=== PATIENT | female | born 2000 | race Caucasian/White ===

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

== ENCOUNTER 2023-10-02 22:03 | Inpatient (IN) | payer MEDICAID ==
[~2023-10-02] VITALS: Ht 162.6 cm; Wt 95.7 kg
[~2023-10-02 22:03] MED LIST: DIVA-112 PO; GABA-1181 PO; OLAN1TAB7 PO
[2023-10-02] MEDS ORDERED: QUEtiapine FUMARATE 100 MG TABLET PO PRN (23:30)
[2023-10-03 00:06] LABS: GLUCOMETER DEV NAME(LOC) POC.BV; POC SARS-COV2 AG, FIA NEGATIVE (NEGATIVE)
[2023-10-03 01:00] VITALS: BP 121/66; PULSE 55; RESP 18; TEMP 97.4; O2SAT 99
[2023-10-03] MEDS: ZOLPIDEM TARTRATE 10 MG TABLET PO PRN (01:09)
[2023-10-03] MEDS: LORazepam 2 MG TABLET PO PRN (01:09)
[2023-10-03 08:04] LABS: BASOPHILS % (AUTO) 0.3 % (0.0-2.0); EOSINOPHILS % (AUTO) 0.5 % (1.0-6.0); HEMATOCRIT 38.5 % (36-46); HEMOGLOBIN 12.9 g/dL (12.0-16.0); LYMPHOCYTES % (AUTO) 21.8 % (22.0-44.0); MEAN CORPUSCULAR HEMOGLOBIN 30.4 pg (26.0-34.0); MEAN CORPUSCULAR HGB CONC 33.4 G/dL (31.0-37.0); MEAN CORPUSCULAR VOLUME 91 fL (80-100); MONOCYTES # (AUTO) 0.8 K/uL (0.1-1.0); MONOCYTES % (AUTO) 9.5 % (2.0-9.0); NEUTROPHILS # (AUTO) 6.1 K/uL (1.8-7.7); NEUTROPHILS % (AUTO) 67.9 % (40.0-70.0); PLATELET COUNT (AUTO) 197 K/uL (150-450); RED BLOOD CELL COUNT(AUTO) 4.23 MIL/uL (4.00-5.20); RED CELL DISTRIBUTION WIDTH 14.2 % (11.5-14.5); WHITE BLOOD COUNT (AUTO) 8.9 K/uL (4.5-11.0)
[2023-10-03 08:05] VITALS: BP 94/65; PULSE 60; RESP 18; TEMP 97.7; O2SAT 98
[2023-10-03 08:09] LABS: HEMOGLOBIN A1C 5.6 % (3.8-5.6)
[2023-10-03 08:26] LABS: ALANINE AMINOTRANSFERASE 45 U/L (12-78); ALBUMIN 2.8 g/dL (3.4-5.0); ALKALINE PHOSPHATASE 69 U/L (46-116); ANION GAP 8 mmol/L (8-16); ASPARTATE AMINOTRANSFERASE 28 U/L (15-37); BILIRUBIN,TOTAL 0.3 mg/dL (0.1-1.0); CARBON DIOXIDE 27 mmol/L (22-29); CHLORIDE 106 mmol/L (98-107); CHOLESTEROL 165 mg/dL (131-200); CREATININE 0.75 mg/dL (0.60-1.30); FREE T4 (FREE THYROXINE) 1.15 ng/dL (0.76-1.46); GLOMERULAR FILTR. RATE CALC > 60 mL/min (>60); GLUCOSE,RANDOM 83 mg/dL (70-110); HDL CHOLESTEROL 33 mg/dL (40-60); LDL CHOL (CALC.) 102 mg/dL (0-130); POTASSIUM 4.2 mmol/L (3.5-5.1); SODIUM SERUM 141 mmol/L (136-145); THYROID STIMULATING HORMONE 3.57 uIU/mL (0.36-3.74); TOTAL PROTEIN, SERUM 7.2 g/dL (6.4-8.2); TRIGLYCERIDES 150 mg/dL (15-150); UREA NITROGEN, BLOOD 10 mg/dL (7-18)
[2023-10-03] MEDS ORDERED: LOPERAMIDE HCL 2 MG CAPSULE PO PRN (09:30)
[2023-10-03] MEDS ORDERED: CloNIDine HCL 0.1 MG TABLET PO PRN (09:30)
[2023-10-03] MEDS ORDERED: DOCUSATE SODIUM 100 MG CAPSULE PO PRN (09:30)
[2023-10-03] MEDS ORDERED: MAGNESIUM HYDROXIDE SUSPENSION 30 ML UDCUP PO PRN (09:30)
[2023-10-03] MEDS ORDERED: MAG HYDROX/ALUMINUM HYD/SIMETH ES 30 ML SUSPENSION UDCUP PO PRN (09:30)
[2023-10-03] MEDS ORDERED: PETROLATUM,WHITE 28 GM JELLY TP PRN (09:30)
[2023-10-03] MEDS: OLANZapine 10 MG RAPDIS TABLET PO SCH (09:54)
[2023-10-03] MEDS: DIVALPROEX SODIUM 500 MG ER TABLET PO SCH ×2 (09:54→20:31)
[2023-10-03] MEDS: GABAPENTIN 300 MG CAPSULE PO SCH (09:54)
[2023-10-03] MEDS: HALOPERIDOL 5 MG TABLET PO PRN (10:43)
[2023-10-03 20:21] VITALS: BP 122/66; PULSE 74; RESP 16; TEMP 97.2; O2SAT 100
[2023-10-04] MEDS: NICOTINE POLACRILEX 2 MG LOZENGE PO PRN ×2 (06:49→17:48)
[2023-10-04 08:01] VITALS: BP 121/70; PULSE 63; RESP 15; TEMP 96.9; O2SAT 96
[2023-10-04 08:35] LABS: BASOPHILS % (AUTO) 0.6 % (0.0-2.0); EOSINOPHILS % (AUTO) 0.4 % (1.0-6.0); HEMATOCRIT 41.5 % (36-46); HEMOGLOBIN 13.6 g/dL (12.0-16.0); LYMPHOCYTES % (AUTO) 22.2 % (22.0-44.0); MEAN CORPUSCULAR HEMOGLOBIN 30.2 pg (26.0-34.0); MEAN CORPUSCULAR HGB CONC 32.9 G/dL (31.0-37.0); MEAN CORPUSCULAR VOLUME 92 fL (80-100); MONOCYTES # (AUTO) 0.6 K/uL (0.1-1.0); MONOCYTES % (AUTO) 6.7 % (2.0-9.0); NEUTROPHILS # (AUTO) 6.2 K/uL (1.8-7.7); NEUTROPHILS % (AUTO) 70.1 % (40.0-70.0); PLATELET COUNT (AUTO) 206 K/uL (150-450); RED BLOOD CELL COUNT(AUTO) 4.52 MIL/uL (4.00-5.20); RED CELL DISTRIBUTION WIDTH 14.4 % (11.5-14.5); WHITE BLOOD COUNT (AUTO) 8.8 K/uL (4.5-11.0)
[2023-10-04 09:17] LABS: HEMOGLOBIN A1C 5.6 % (3.8-5.6)
[2023-10-04 09:18] LABS: ALANINE AMINOTRANSFERASE 47 U/L (12-78); ALBUMIN 3.1 g/dL (3.4-5.0); ALKALINE PHOSPHATASE 73 U/L (46-116); ANION GAP 9 mmol/L (8-16); ASPARTATE AMINOTRANSFERASE 27 U/L (15-37); BILIRUBIN,TOTAL 0.4 mg/dL (0.1-1.0); CALCIUM, TOTAL 9.1 mg/dL (8.8-10.5); CARBON DIOXIDE 27 mmol/L (22-29); CHLORIDE 103 mmol/L (98-107); CHOL/HDL RATIO 5.4 (3.9-5.7); CHOLESTEROL 177 mg/dL (131-200); CREATININE 0.88 mg/dL (0.60-1.30); FREE T4 (FREE THYROXINE) 1.35 ng/dL (0.76-1.46); GLOMERULAR FILTR. RATE CALC > 60 mL/min (>60); GLUCOSE,RANDOM 101 mg/dL (70-110); HCG,QUANTITATIVE < 1 mIU/mL (0-6); HDL CHOLESTEROL 33 mg/dL (40-60); LDL CHOL (CALC.) 120 mg/dL (0-130); SODIUM SERUM 139 mmol/L (136-145); THYROID STIMULATING HORMONE 1.31 uIU/mL (0.36-3.74); TOTAL PROTEIN, SERUM 7.9 g/dL (6.4-8.2); TRIGLYCERIDES 122 mg/dL (15-150); UREA NITROGEN, BLOOD 13 mg/dL (7-18)
[2023-10-04] MEDS: HALOPERIDOL DECANOATE 100 MG/ML VIAL IM SCH (13:33)
[2023-10-04 20:45] VITALS: BP 141/73; PULSE 71; RESP 16; TEMP 98.1; O2SAT 97
[2023-10-05 08:06] VITALS: BP 148/76; PULSE 71; RESP 15; TEMP 97.1; O2SAT 97
[2023-10-05 20:05] VITALS: BP 109/85; PULSE 60; RESP 18; TEMP 97.7; O2SAT 97
[2023-10-06 06:05] VITALS: RESP 18
[2023-10-06] MEDS: ACETAMINOPHEN 325 MG TABLET PO PRN (06:08)
[2023-10-06 07:08] VITALS: RESP 16
[2023-10-06 08:23] VITALS: BP 143/70; PULSE 70; RESP 18; TEMP 98; O2SAT 98
[2023-10-06] MEDS: GuaiFENesin/D-METHORPHAN [SUGAR-FREE] 200-20MG/10 ML SYRUP UDCUP PO PRN (18:39)
[2023-10-06] MEDS: ALBUTEROL SULFATE HFA 90 MCG/PUFF 8 GM INHALER IH PRN (19:42)
[2023-10-06 21:26] VITALS: BP 143/70; PULSE 67; RESP 18; TEMP 97.8; O2SAT 98
[2023-10-07 00:16] VITALS: BP 104/70; PULSE 93; RESP 18; TEMP 101.7; O2SAT 98
[2023-10-07] MEDS: IBUPROFEN 400 MG TABLET PO PRN (00:19)
[2023-10-07 01:19] VITALS: RESP 16
[2023-10-07 07:03] VITALS: TEMP 98.3
[2023-10-07] MEDS: AZITHROMYCIN 500 MG TABLET PO SCH (09:00)
[2023-10-07 09:48] VITALS: BP 122/70; PULSE 90; RESP 17; TEMP 97.9; O2SAT 100
[2023-10-07] MEDS: ONDANSETRON HCL 4 MG TABLET PO PRN (18:03)
[2023-10-07 22:18] VITALS: BP 103/73; PULSE 65; RESP 18; TEMP 97.2; O2SAT 96
[2023-10-08 08:06] LABS: COVID AG,FIA SOURCE NASAL SWAB
[2023-10-08 08:20] LABS: APPEARANCE,URINE CLEAR (CLEAR); BILIRUBIN,URINE NEGATIVE (NEGATIVE); COLOR,URINE LIGHT YELLOW (YELLOW); GLUCOSE, URINE (UA) NEGATIVE (NEGATIVE); KETONES,URINE NEGATIVE (NEGATIVE); LEUKOCYTE ESTERASE ,URINE TRACE (NEGATIVE); NITRATE,URINE NEGATIVE (NEGATIVE); OCCULT BLOOD,URINE SMALL (NEGATIVE); PH,URINE 5.5 (5.0-8.0); PH,URINE DRUG SCREEN 5.5 (5.0-8.0); PROTEIN,URINE NEGATIVE (NEGATIVE); SPECIFIC GRAVITIY, URINE 1.019 (1.003-1.030); UROBILINOGEN,URINE <=1.0 mg/dL (<=1.0)
[2023-10-08 08:27] LABS: ALCOHOL, URINE DRUG SCREEN NEGATIVE (NEGATIVE); AMPHET/METH SCREEN,URINE NEGATIVE (NEGATIVE); BACTERIA,URINE None Seen /HPF (None Seen); BARBITURATE SCREEN, URINE NEGATIVE (NEGATIVE); BENZODIAZEPINES SCREEN,URINE NEGATIVE (NEGATIVE); CANNABINOID SCREEN,URINE POSITIVE (NEGATIVE); COCAINE SCREEN,URINE NEGATIVE (NEGATIVE); METHADONE SCREEN, URINE NEGATIVE (NEGATIVE); OPIATE SCREEN,URINE NEGATIVE (NEGATIVE); PHENCYCLIDINE SCREEN,URINE NEGATIVE (NEGATIVE); SQUAMOUS EPITHELIAL CELL,UR Few /LPF (None Seen); WBC,URINE 0-2 /HPF (0-5)
[2023-10-08 08:44] LABS: SARS-COV2 (COVID) ANTIGEN,FIA Negative (Negative)
[2023-10-08 09:08] LABS: INFLUENZA TYPE A NEGATIVE FOR TYPE A (NEGATIVE); INFLUENZA TYPE B NEGATIVE FOR TYPE B (NEGATIVE)
[2023-10-08 09:11] VITALS: BP 112/73; PULSE 78; RESP 18; TEMP 97.1; O2SAT 98
[2023-10-08 10:03] VITALS: RESP 18
[2023-10-08] MEDS ORDERED: OLAN10TA26 PO ×2 (10:19→12:40)
[2023-10-08 11:03] VITALS: RESP 18
[2023-10-08] MEDS ORDERED: DIVA500T69 PO ×2 (12:40)
[2023-10-08] MEDS ORDERED: HALO100V36 IM (12:40)
[2023-10-08] MEDS ORDERED: GABA-1181 PO (12:40)
== END 2023-10-08 17:42 | disposition home or self-care (01) | DRG 750 ==
LOC: UNDOADMIN 10-03 00:38 → B2S 10-03 00:38 → UNDODISIN 10-03 09:15 → B2S 10-06 04:51
PROVIDERS: ADMIT Psychiatry & Neurology Child & Adolescent Psychiatry; ATTEND Psychiatry & Neurology Child & Adolescent Psychiatry
PROC: GZHZZZZ Group Psychotherapy (ICD-10-PCS; principal; 2023-10-04)
PROC: GZ52ZZZ Individual Psychotherapy, Cognitive (ICD-10-PCS; 2023-10-04)
DX: F25.1 Schizoaffective disorder, depressive type (principal); F22 Delusional disorders; E66.01 Morbid (severe) obesity due to excess calories; G47.00 Insomnia, unspecified; Z91.010 Allergy to peanuts; Z88.6 Allergy status to analgesic agent; Z91.014 Allergy to mammalian meats; Z91.018 Allergy to other foods; Z20.822 Contact with and (suspected) exposure to COVID-19; Z68.36 Body mass index [BMI] 36.0-36.9, adult
CPT/HCPCS: 80053; 80061; 80307; 81001; 83036; 84439; 84443; 84702; 84703; 85025; 87804; J1631; J3535; Q0162; Q9967

== ENCOUNTER 2023-10-10 00:56 | Inpatient (IN) | payer MEDICAID, OTHER ==
[~2023-10-10] VITALS: Ht 162.6 cm; Wt 95.0 kg
[~2023-10-10 00:56] MED LIST changes: +DIVA500T69 PO; +HALO100V36 IM; +OLAN10TA26 PO; -OLAN1TAB7 PO
[2023-10-10 01:29] LABS: EOSINOPHILS % (AUTO) 0.2 % (1.0-6.0); HEMATOCRIT 39.7 % (36-46); HEMOGLOBIN 12.9 g/dL (12.0-16.0); LYMPHOCYTES # (AUTO) 1.5 K/uL (1.0-4.8); LYMPHOCYTES % (AUTO) 27.1 % (22.0-44.0); MEAN CORPUSCULAR HGB CONC 32.6 G/dL (31.0-37.0); MEAN CORPUSCULAR VOLUME 92 fL (80-100); MONOCYTES # (AUTO) 0.5 K/uL (0.1-1.0); MONOCYTES % (AUTO) 9.2 % (2.0-9.0); NEUTROPHILS # (AUTO) 3.6 K/uL (1.8-7.7); NEUTROPHILS % (AUTO) 62.5 % (40.0-70.0); PLATELET COUNT (AUTO) 211 K/uL (150-450); RED BLOOD CELL COUNT(AUTO) 4.31 MIL/uL (4.00-5.20); RED CELL DISTRIBUTION WIDTH 14.1 % (11.5-14.5); WHITE BLOOD COUNT (AUTO) 5.7 K/uL (4.5-11.0)
[2023-10-10 01:39] LABS: COVID AG,FIA SOURCE NASAL SWAB
[2023-10-10 01:42] LABS: ANION GAP 7 mmol/L (8-16); CALCIUM, TOTAL 8.9 mg/dL (8.8-10.5); CARBON DIOXIDE 30 mmol/L (22-29); CHLORIDE 104 mmol/L (98-107); GLOMERULAR FILTR. RATE CALC > 60 mL/min (>60); GLUCOSE,RANDOM 140 mg/dL (70-110); POTASSIUM 3.6 mmol/L (3.5-5.1); SODIUM SERUM 141 mmol/L (136-145); UREA NITROGEN, BLOOD 16 mg/dL (7-18)
[2023-10-10 01:48] LABS: ALANINE AMINOTRANSFERASE 29 U/L (12-78); ALBUMIN 3.1 g/dL (3.4-5.0); ALKALINE PHOSPHATASE 56 U/L (46-116); ASPARTATE AMINOTRANSFERASE 16 U/L (15-37); BILIRUBIN,TOTAL 0.2 mg/dL (0.1-1.0); TOTAL PROTEIN, SERUM 7.4 g/dL (6.4-8.2)
[2023-10-10 01:49] LABS: ACETAMINOPHEN < 2 mcg/mL (10-30); ALCOHOL, BLOOD (SERUM) < 3 mg/dL (0-10)
[2023-10-10 02:05] LABS: SALICYLATE 0.8 mg/dL (2.8-20.0)
[2023-10-10 02:10] LABS: SARS-COV2 (COVID) ANTIGEN,FIA Negative (Negative)
[2023-10-10 02:39] LABS: APPEARANCE,URINE CLEAR (CLEAR); BILIRUBIN,URINE NEGATIVE (NEGATIVE); COLOR,URINE COLORLESS (YELLOW); GLUCOSE, URINE (UA) NEGATIVE (NEGATIVE); KETONES,URINE NEGATIVE (NEGATIVE); LEUKOCYTE ESTERASE ,URINE NEGATIVE (NEGATIVE); NITRATE,URINE NEGATIVE (NEGATIVE); OCCULT BLOOD,URINE NEGATIVE (NEGATIVE); PH,URINE 6.5 (5.0-8.0); PH,URINE DRUG SCREEN 6.5 (5.0-8.0); PROTEIN,URINE NEGATIVE (NEGATIVE); SPECIFIC GRAVITIY, URINE 1.013 (1.003-1.030); UROBILINOGEN,URINE <=1.0 mg/dL (<=1.0)
[2023-10-10 02:45] LABS: ALCOHOL, URINE DRUG SCREEN NEGATIVE (NEGATIVE); AMPHET/METH SCREEN,URINE NEGATIVE (NEGATIVE); BARBITURATE SCREEN, URINE NEGATIVE (NEGATIVE); BENZODIAZEPINES SCREEN,URINE NEGATIVE (NEGATIVE); CANNABINOID SCREEN,URINE POSITIVE (NEGATIVE); COCAINE SCREEN,URINE NEGATIVE (NEGATIVE); METHADONE SCREEN, URINE NEGATIVE (NEGATIVE); OPIATE SCREEN,URINE NEGATIVE (NEGATIVE); PHENCYCLIDINE SCREEN,URINE NEGATIVE (NEGATIVE)
[2023-10-10 14:00] VITALS: BP 127/93; PULSE 101; RESP 16; TEMP 97.3
[2023-10-10] MEDS: LORazepam 2 MG TABLET PO PRN (20:56)
[2023-10-10] MEDS: HALOPERIDOL 5 MG TABLET PO PRN (20:56)
[2023-10-10 21:07] VITALS: BP 130/82; PULSE 82; RESP 18; TEMP 98.9
[2023-10-10] MEDS: ZOLPIDEM TARTRATE 5 MG TABLET PO PRN (23:28)
[2023-10-11 08:41] VITALS: BP 126/57; PULSE 62; RESP 18; TEMP 97.8
[2023-10-11] MEDS: DIVALPROEX SODIUM 500 MG ER TABLET PO SCH ×2 (12:46→21:00)
[2023-10-11] MEDS: OLANZapine 10 MG RAPDIS TABLET PO SCH (12:46)
[2023-10-11] MEDS: GABAPENTIN 300 MG CAPSULE PO SCH (12:46)
[2023-10-11 21:50] VITALS: BP 134/70; PULSE 88; RESP 18; TEMP 97.8
[2023-10-12 09:44] VITALS: BP 96/71; PULSE 71; RESP 19; TEMP 97.5
[2023-10-12] MEDS ORDERED: DOCUSATE SODIUM 100 MG CAPSULE PO PRN (17:00)
[2023-10-12] MEDS ORDERED: GuaiFENesin/D-METHORPHAN [SUGAR-FREE] 200-20MG/10 ML SYRUP UDCUP PO PRN (17:00)
[2023-10-12] MEDS ORDERED: LOPERAMIDE HCL 2 MG CAPSULE PO PRN (17:00)
[2023-10-12] MEDS ORDERED: ALBUTEROL SULFATE HFA 90 MCG/PUFF 8 GM INHALER IH PRN (17:00)
[2023-10-12] MEDS ORDERED: CloNIDine HCL 0.1 MG TABLET PO PRN (17:00)
[2023-10-12] MEDS ORDERED: NICOTINE POLACRILEX 2 MG LOZENGE PO PRN (17:00)
[2023-10-12] MEDS ORDERED: MAGNESIUM HYDROXIDE SUSPENSION 30 ML UDCUP PO PRN (17:00)
[2023-10-12] MEDS ORDERED: PETROLATUM,WHITE 28 GM JELLY TP PRN (17:00)
[2023-10-12 17:22] VITALS: BP 112/74; PULSE 74; RESP 18; TEMP 97.3
[2023-10-12] MEDS: MAG HYDROX/ALUMINUM HYD/SIMETH ES 30 ML SUSPENSION UDCUP PO PRN (17:22)
[2023-10-12] MEDS: ACETAMINOPHEN 325 MG TABLET PO PRN (17:22)
[2023-10-12] MEDS: NICOTINE POLACRILEX 4 MG LOZENGE PO PRN (20:34)
[2023-10-12 21:50] VITALS: BP 113/70; PULSE 89; RESP 18; TEMP 97.7
[2023-10-13 08:16] VITALS: BP 137/71; PULSE 74; RESP 18; TEMP 98.1
[2023-10-13 08:30] LABS: BASOPHILS % (AUTO) 0.6 % (0.0-2.0); EOSINOPHILS % (AUTO) 0.5 % (1.0-6.0); HEMATOCRIT 41.5 % (36-46); HEMOGLOBIN 13.7 g/dL (12.0-16.0); LYMPHOCYTES # (AUTO) 1.5 K/uL (1.0-4.8); LYMPHOCYTES % (AUTO) 29.4 % (22.0-44.0); MEAN CORPUSCULAR HEMOGLOBIN 30.1 pg (26.0-34.0); MEAN CORPUSCULAR VOLUME 91 fL (80-100); MONOCYTES # (AUTO) 0.4 K/uL (0.1-1.0); MONOCYTES % (AUTO) 7.9 % (2.0-9.0); NEUTROPHILS # (AUTO) 3.1 K/uL (1.8-7.7); NEUTROPHILS % (AUTO) 61.6 % (40.0-70.0); PLATELET COUNT (AUTO) 208 K/uL (150-450); RED BLOOD CELL COUNT(AUTO) 4.55 MIL/uL (4.00-5.20); RED CELL DISTRIBUTION WIDTH 13.9 % (11.5-14.5); WHITE BLOOD COUNT (AUTO) 5.1 K/uL (4.5-11.0)
[2023-10-13 09:03] LABS: HEMOGLOBIN A1C 5.4 % (3.8-5.6)
[2023-10-13 09:15] LABS: ALANINE AMINOTRANSFERASE 39 U/L (12-78); ALBUMIN 3.3 g/dL (3.4-5.0); ALKALINE PHOSPHATASE 68 U/L (46-116); ANION GAP 8 mmol/L (8-16); ASPARTATE AMINOTRANSFERASE 37 U/L (15-37); BILIRUBIN,TOTAL 0.3 mg/dL (0.1-1.0); CARBON DIOXIDE 26 mmol/L (22-29); CHLORIDE 103 mmol/L (98-107); CHOL/HDL RATIO 4.1 (3.9-5.7); CHOLESTEROL 138 mg/dL (131-200); CREATININE 0.88 mg/dL (0.60-1.30); GLOMERULAR FILTR. RATE CALC > 60 mL/min (>60); GLUCOSE,RANDOM 114 mg/dL (70-110); HDL CHOLESTEROL 34 mg/dL (40-60); LDL CHOL (CALC.) 58 mg/dL (0-130); SODIUM SERUM 137 mmol/L (136-145); THYROID STIMULATING HORMONE 1.65 uIU/mL (0.36-3.74); TRIGLYCERIDES 228 mg/dL (15-150); UREA NITROGEN, BLOOD 12 mg/dL (7-18)
[2023-10-13 17:58] VITALS: BP 128/68; PULSE 72; RESP 17; TEMP 97.8
[2023-10-13 18:59] VITALS: RESP 18
[2023-10-13 21:50] VITALS: BP 146/68; PULSE 72; RESP 18; TEMP 98
[2023-10-13] MEDS: DiphenhydrAMINE HCL 25 MG CAPSULE PO ONE (22:10)
[2023-10-14 10:17] VITALS: BP 112/56; PULSE 58; RESP 18; TEMP 98
[2023-10-14 22:39] VITALS: BP 110/71; PULSE 66; RESP 18; TEMP 96.4
[2023-10-15 08:05] VITALS: BP 115/79; PULSE 93; RESP 18; TEMP 98
[2023-10-15 20:07] VITALS: BP 116/88; PULSE 76; RESP 18; TEMP 97.9
[2023-10-16 11:03] VITALS: BP 127/74; PULSE 82; RESP 18; TEMP 97
[2023-10-16 14:49] VITALS: BP 118/75; PULSE 78; RESP 18; TEMP 97.8
[2023-10-16 15:48] VITALS: RESP 18
[2023-10-16 20:40] VITALS: BP 119/79; PULSE 78; RESP 18; TEMP 97.4
[2023-10-17] VITALS (13 sets, daily range): BP systolic 88–134; BP diastolic 34–88; PULSE 48–84; RESP 16–18; TEMP 97.2–98.9; O2SAT 99
[2023-10-17] MEDS: ONDANSETRON HCL 4 MG TABLET PO PRN (08:30)
[2023-10-17] MEDS: IBUPROFEN 400 MG TABLET PO PRN (09:35)
[2023-10-18 08:40] VITALS: BP 130/85; PULSE 79; RESP 18; TEMP 97.7
[2023-10-18] MEDS ORDERED: ARIP400S3 IM (11:48)
[2023-10-18] MEDS ORDERED: DIVA-153 PO ×2 (11:48)
[2023-10-26] MEDS ORDERED: ARIPiprazole ER SUSPENSION 400 MG PRE-FILLED DUAL CHAMBER SYRINGE IM SCH (09:00)
== END 2023-10-18 15:24 | disposition home or self-care (01) | DRG 750 ==
LOC: EMS 00:57 → 3EI 13:10
PROVIDERS: ADMIT Psychiatry & Neurology Child & Adolescent Psychiatry; ATTEND Psychiatry & Neurology Child & Adolescent Psychiatry
PROC: GZHZZZZ Group Psychotherapy (ICD-10-PCS; principal; 2023-10-11)
PROC: GZ52ZZZ Individual Psychotherapy, Cognitive (ICD-10-PCS; 2023-10-11)
DX: F25.1 Schizoaffective disorder, depressive type (principal); R45.851 Suicidal ideations; R56.9 Unspecified convulsions; E66.01 Morbid (severe) obesity due to excess calories; Y90.9 Presence of alcohol in blood, level not specified; T43.592A Poisoning by other antipsychotics and neuroleptics, intentional self-harm, initial encounter; Z20.822 Contact with and (suspected) exposure to COVID-19; K31.84 Gastroparesis; F10.10 Alcohol abuse, uncomplicated; F12.90 Cannabis use, unspecified, uncomplicated; T43.96XA Underdosing of unspecified psychotropic drug, initial encounter; Z91.010 Allergy to peanuts; Z88.8 Allergy status to other drugs, medicaments and biological substances; Z88.5 Allergy status to narcotic agent; Z91.014 Allergy to mammalian meats; Y92.89 Other specified places as the place of occurrence of the external cause; Z79.899 Other long term (current) drug therapy; Z68.35 Body mass index [BMI] 35.0-35.9, adult
CPT/HCPCS: 72040; 80053; 80061; 80307; 81003; 83036; 84443; 85025; 87081; 93005; 99291; G0480; G0481; Q0162; Q9967

== ENCOUNTER 2023-10-19 18:57 | Inpatient (IN) | payer MEDICAID, OTHER ==
[~2023-10-19] VITALS: Ht 162.6 cm; Wt 103.4 kg
[~2023-10-19 18:57] MED LIST changes: +ARIP400S3 IM; +DIVA-153 PO; -HALO100V36 IM
[2023-10-19 20:05] LABS: COVID AG,FIA SOURCE NASAL SWAB
[2023-10-19 20:12] LABS: BASOPHILS % (AUTO) 0.4 % (0.0-2.0); EOSINOPHILS % (AUTO) 0.1 % (1.0-6.0); HEMATOCRIT 40.7 % (36-46); HEMOGLOBIN 13.1 g/dL (12.0-16.0); LYMPHOCYTES # (AUTO) 1.3 K/uL (1.0-4.8); LYMPHOCYTES % (AUTO) 16.3 % (22.0-44.0); MEAN CORPUSCULAR HEMOGLOBIN 29.6 pg (26.0-34.0); MEAN CORPUSCULAR HGB CONC 32.2 G/dL (31.0-37.0); MEAN CORPUSCULAR VOLUME 92 fL (80-100); MONOCYTES # (AUTO) 0.7 K/uL (0.1-1.0); MONOCYTES % (AUTO) 8.5 % (2.0-9.0); NEUTROPHILS # (AUTO) 5.9 K/uL (1.8-7.7); NEUTROPHILS % (AUTO) 74.7 % (40.0-70.0); PLATELET COUNT (AUTO) 194 K/uL (150-450); RED BLOOD CELL COUNT(AUTO) 4.43 MIL/uL (4.00-5.20); RED CELL DISTRIBUTION WIDTH 13.9 % (11.5-14.5); WHITE BLOOD COUNT (AUTO) 7.9 K/uL (4.5-11.0)
[2023-10-19 20:18] LABS: ANION GAP 7 mmol/L (8-16); CALCIUM, TOTAL 9.4 mg/dL (8.8-10.5); CARBON DIOXIDE 30 mmol/L (22-29); CHLORIDE 104 mmol/L (98-107); CREATININE 0.84 mg/dL (0.60-1.30); GLOMERULAR FILTR. RATE CALC > 60 mL/min (>60); GLUCOSE,RANDOM 106 mg/dL (70-110); POTASSIUM 3.9 mmol/L (3.5-5.1); SODIUM SERUM 141 mmol/L (136-145); UREA NITROGEN, BLOOD 14 mg/dL (7-18)
[2023-10-19 20:21] LABS: ALCOHOL, URINE DRUG SCREEN NEGATIVE (NEGATIVE); AMPHET/METH SCREEN,URINE NEGATIVE (NEGATIVE); BARBITURATE SCREEN, URINE NEGATIVE (NEGATIVE); BENZODIAZEPINES SCREEN,URINE NEGATIVE (NEGATIVE); CANNABINOID SCREEN,URINE POSITIVE (NEGATIVE); COCAINE SCREEN,URINE NEGATIVE (NEGATIVE); METHADONE SCREEN, URINE NEGATIVE (NEGATIVE); OPIATE SCREEN,URINE NEGATIVE (NEGATIVE); PHENCYCLIDINE SCREEN,URINE NEGATIVE (NEGATIVE)
[2023-10-19 20:21] LABS: ALANINE AMINOTRANSFERASE 29 U/L (12-78); ALBUMIN 3.5 g/dL (3.4-5.0); ALKALINE PHOSPHATASE 67 U/L (46-116); ASPARTATE AMINOTRANSFERASE 17 U/L (15-37); BILIRUBIN,TOTAL 0.3 mg/dL (0.1-1.0); TOTAL PROTEIN, SERUM 7.7 g/dL (6.4-8.2)
[2023-10-19 20:23] LABS: SARS-COV2 (COVID) ANTIGEN,FIA Negative (Negative)
[2023-10-19 20:24] LABS: ALCOHOL, BLOOD (SERUM) < 3 mg/dL (0-10)
[2023-10-19] MEDS: OLANZapine 5 MG TABLET PO ONE (21:41)
[2023-10-20] MEDS ORDERED: LOPERAMIDE HCL 2 MG CAPSULE PO PRN (07:30)
[2023-10-20] MEDS ORDERED: CloNIDine HCL 0.1 MG TABLET PO PRN (07:30)
[2023-10-20] MEDS ORDERED: NICOTINE 14 MG/24 HOUR PATCH TD PRN (07:30)
[2023-10-20] MEDS ORDERED: ACETAMINOPHEN 325 MG TABLET PO PRN (07:30)
[2023-10-20] MEDS ORDERED: MAGNESIUM HYDROXIDE SUSPENSION 30 ML UDCUP PO PRN (07:30)
[2023-10-20] MEDS ORDERED: ALBUTEROL SULFATE HFA 90 MCG/PUFF 8 GM INHALER IH PRN (07:30)
[2023-10-20] MEDS ORDERED: PETROLATUM,WHITE 28 GM JELLY TP PRN (07:30)
[2023-10-20] MEDS ORDERED: MAG HYDROX/ALUMINUM HYD/SIMETH ES 30 ML SUSPENSION UDCUP PO PRN (07:30)
[2023-10-20] MEDS ORDERED: DOCUSATE SODIUM 100 MG CAPSULE PO PRN (07:30)
[2023-10-20] MEDS ORDERED: GuaiFENesin/D-METHORPHAN [SUGAR-FREE] 200-20MG/10 ML SYRUP UDCUP PO PRN (07:30)
[2023-10-20 09:50] VITALS: BP 127/69; PULSE 74; RESP 16; TEMP 98; O2SAT 97
[2023-10-20] MEDS: LORazepam 2 MG TABLET PO PRN (10:25)
[2023-10-20] MEDS: HALOPERIDOL 5 MG TABLET PO PRN (10:25)
[2023-10-20] MEDS: GABAPENTIN 300 MG CAPSULE PO SCH (13:19)
[2023-10-20] MEDS: DIVALPROEX SODIUM 500 MG DR TABLET PO SCH (13:19)
[2023-10-20 18:32] VITALS: BP 115/63
[2023-10-20] MEDS: NICOTINE POLACRILEX 2 MG LOZENGE PO PRN (18:50)
[2023-10-20] MEDS: ZOLPIDEM TARTRATE 10 MG TABLET PO PRN (20:22)
[2023-10-20] MEDS: OLANZapine 10 MG TABLET PO SCH (20:23)
[2023-10-20 20:35] VITALS: BP 115/63; PULSE 56; RESP 16; TEMP 98.4; O2SAT 97
[2023-10-20] MEDS: IBUPROFEN 400 MG TABLET PO PRN (23:05)
[2023-10-21 00:05] VITALS: RESP 16
[2023-10-21 08:17] VITALS: BP 122/76; PULSE 61; RESP 18; TEMP 97.4; O2SAT 99
[2023-10-21] MEDS: OLANZapine 5 MG RAPDIS TABLET PO ONE (10:47)
[2023-10-21] MEDS: BACITRACIN 28 GM OINTMENT TP SCH (17:24)
[2023-10-21] MEDS: ONDANSETRON HCL 4 MG TABLET PO PRN (18:40)
[2023-10-21 20:27] VITALS: BP 119/76; PULSE 71; RESP 18; TEMP 98; O2SAT 97
[2023-10-22 08:38] LABS: HEMOGLOBIN A1C 5.3 % (3.8-5.6)
[2023-10-22 08:53] LABS: CHOL/HDL RATIO 4.5 (3.9-5.7); THYROID STIMULATING HORMONE 1.71 uIU/mL (0.36-3.74)
[2023-10-22 09:18] VITALS: BP 116/64; PULSE 86; RESP 18; TEMP 97.2; O2SAT 97
[2023-10-22] MEDS: ETHYL ALCOHOL 62% ANTISEPTIC NASAL SANITIZER 0.6 ML AMPUL NASAL SCH (21:00)
[2023-10-23 02:02] VITALS: BP 126/75; PULSE 76; RESP 18; TEMP 97.8; O2SAT 98
[2023-10-23 08:18] VITALS: BP 100/68; PULSE 75; RESP 18; TEMP 97.3; O2SAT 98
[2023-10-23 08:53] LABS: APPEARANCE,URINE CLEAR (CLEAR); BILIRUBIN,URINE NEGATIVE (NEGATIVE); COLOR,URINE YELLOW (YELLOW); GLUCOSE, URINE (UA) NEGATIVE (NEGATIVE); KETONES,URINE NEGATIVE (NEGATIVE); LEUKOCYTE ESTERASE ,URINE NEGATIVE (NEGATIVE); NITRATE,URINE NEGATIVE (NEGATIVE); OCCULT BLOOD,URINE NEGATIVE (NEGATIVE); PROTEIN,URINE NEGATIVE (NEGATIVE); SPECIFIC GRAVITIY, URINE 1.022 (1.003-1.030); UROBILINOGEN,URINE <=1.0 mg/dL (<=1.0)
[2023-10-23 09:15] LABS: ALCOHOL, URINE DRUG SCREEN NEGATIVE (NEGATIVE); AMPHET/METH SCREEN,URINE NEGATIVE (NEGATIVE); BARBITURATE SCREEN, URINE NEGATIVE (NEGATIVE); BENZODIAZEPINES SCREEN,URINE NEGATIVE (NEGATIVE); CANNABINOID SCREEN,URINE POSITIVE (NEGATIVE); COCAINE SCREEN,URINE NEGATIVE (NEGATIVE); METHADONE SCREEN, URINE NEGATIVE (NEGATIVE); OPIATE SCREEN,URINE NEGATIVE (NEGATIVE); PHENCYCLIDINE SCREEN,URINE NEGATIVE (NEGATIVE)
[2023-10-23 09:44] VITALS: RESP 18
[2023-10-23 10:44] VITALS: RESP 18
[2023-10-23 16:06] LABS: HEPATITIS C AB (EIA) Non Reactive (Non Reactive)
[2023-10-23 20:38] VITALS: BP 127/77; PULSE 77; RESP 16; TEMP 97.5; O2SAT 100
[2023-10-24 08:55] VITALS: BP 100/60; PULSE 53; RESP 17; TEMP 97.7; O2SAT 98
[2023-10-24 20:19] VITALS: BP 121/74; PULSE 76; RESP 16; TEMP 98; O2SAT 98
[2023-10-25 08:44] VITALS: BP 102/60; PULSE 68; RESP 18; TEMP 97.8; O2SAT 97
[2023-10-25] MEDS ORDERED: OLAN10TA74 PO (12:06)
[2023-10-25] MEDS ORDERED: DIVA-112 PO (12:06)
[2023-10-26] MEDS ORDERED: ARIPiprazole ER SUSPENSION 400 MG PRE-FILLED DUAL CHAMBER SYRINGE IM SCH (09:00)
== END 2023-10-25 16:09 | disposition home or self-care (01) | DRG 750 ==
LOC: EMS 19:01 → B2S 10-20 03:02
PROVIDERS: ADMIT Psychiatry & Neurology Child & Adolescent Psychiatry; ATTEND Psychiatry & Neurology Child & Adolescent Psychiatry
DX: F25.1 Schizoaffective disorder, depressive type (principal); R45.851 Suicidal ideations; G40.909 Epilepsy, unspecified, not intractable, without status epilepticus; F32.9 Major depressive disorder, single episode, unspecified; Z20.822 Contact with and (suspected) exposure to COVID-19; F12.10 Cannabis abuse, uncomplicated; Z79.899 Other long term (current) drug therapy; Z91.010 Allergy to peanuts; Z91.148 Patient's other noncompliance with medication regimen for other reason
CPT/HCPCS: 80053; 80061; 80164; 80307; 81003; 83036; 84443; 85025; 86803; 87081; 87340; G0480; J0401; Q0162; Q9967

== ENCOUNTER 2023-10-28 03:30 | Inpatient (IN) | payer MEDICAID ==
[~2023-10-28] VITALS: Ht 162.6 cm; Wt 96.6 kg
[~2023-10-28 03:30] MED LIST changes: -DIVA-153 PO; -DIVA500T69 PO; -OLAN10TA26 PO; +OLAN10TA74 PO
[2023-10-29] MEDS: ZOLPIDEM TARTRATE 10 MG TABLET PO PRN (00:22)
[2023-10-29 02:14] VITALS: BP 115/54; PULSE 50; RESP 18; TEMP 97.6; O2SAT 100
[2023-10-29 02:49] VITALS: BP 115/54; PULSE 50; RESP 18; TEMP 97.6
[2023-10-29] MEDS ORDERED: ALBUTEROL SULFATE HFA 90 MCG/PUFF 8 GM INHALER IH PRN (05:45)
[2023-10-29] MEDS ORDERED: DOCUSATE SODIUM 100 MG CAPSULE PO PRN (05:45)
[2023-10-29] MEDS ORDERED: PETROLATUM,WHITE 28 GM JELLY TP PRN (05:45)
[2023-10-29] MEDS ORDERED: GuaiFENesin/D-METHORPHAN [SUGAR-FREE] 200-20MG/10 ML SYRUP UDCUP PO PRN (05:45)
[2023-10-29] MEDS ORDERED: MAGNESIUM HYDROXIDE SUSPENSION 30 ML UDCUP PO PRN (05:45)
[2023-10-29] MEDS ORDERED: IBUPROFEN 400 MG TABLET PO PRN (05:45)
[2023-10-29] MEDS ORDERED: CloNIDine HCL 0.1 MG TABLET PO PRN (05:45)
[2023-10-29] MEDS ORDERED: MAG HYDROX/ALUMINUM HYD/SIMETH ES 30 ML SUSPENSION UDCUP PO PRN (05:45)
[2023-10-29] MEDS ORDERED: LOPERAMIDE HCL 2 MG CAPSULE PO PRN (05:45)
[2023-10-29] MEDS ORDERED: NICOTINE 14 MG/24 HOUR PATCH TD PRN (05:45)
[2023-10-29 08:00] VITALS: BP 104/60; PULSE 67; RESP 16; TEMP 97.3; O2SAT 97
[2023-10-29] MEDS: LORazepam 2 MG TABLET PO PRN (08:11)
[2023-10-29] MEDS: ONDANSETRON HCL 4 MG TABLET PO PRN (08:11)
[2023-10-29] MEDS: HALOPERIDOL 5 MG TABLET PO PRN (08:11)
[2023-10-29] MEDS: GABAPENTIN 300 MG CAPSULE PO SCH (08:12)
[2023-10-29 08:34] LABS: HEMOGLOBIN A1C 5.3 % (3.8-5.6)
[2023-10-29 08:47] VITALS: BP 104/60; PULSE 67; RESP 16; TEMP 97.3
[2023-10-29 08:53] LABS: CHOL/HDL RATIO 3.8 (3.9-5.7); FREE T4 (FREE THYROXINE) 0.86 ng/dL (0.76-1.46); THYROID STIMULATING HORMONE 2.16 uIU/mL (0.36-3.74)
[2023-10-29 08:56] LABS: APPEARANCE,URINE CLEAR (CLEAR); BILIRUBIN,URINE NEGATIVE (NEGATIVE); COLOR,URINE YELLOW (YELLOW); GLUCOSE, URINE (UA) NEGATIVE (NEGATIVE); KETONES,URINE NEGATIVE (NEGATIVE); LEUKOCYTE ESTERASE ,URINE MODERATE (NEGATIVE); NITRATE,URINE NEGATIVE (NEGATIVE); OCCULT BLOOD,URINE NEGATIVE (NEGATIVE); PH,URINE 6.5 (5.0-8.0); PH,URINE DRUG SCREEN 6.5 (5.0-8.0); PROTEIN,URINE NEGATIVE (NEGATIVE); UROBILINOGEN,URINE <=1.0 mg/dL (<=1.0)
[2023-10-29 09:04] LABS: ALCOHOL, URINE DRUG SCREEN NEGATIVE (NEGATIVE); AMPHET/METH SCREEN,URINE NEGATIVE (NEGATIVE); BARBITURATE SCREEN, URINE NEGATIVE (NEGATIVE); BENZODIAZEPINES SCREEN,URINE NEGATIVE (NEGATIVE); CANNABINOID SCREEN,URINE POSITIVE (NEGATIVE); COCAINE SCREEN,URINE NEGATIVE (NEGATIVE); METHADONE SCREEN, URINE NEGATIVE (NEGATIVE); OPIATE SCREEN,URINE NEGATIVE (NEGATIVE); PHENCYCLIDINE SCREEN,URINE NEGATIVE (NEGATIVE)
[2023-10-29 10:37] LABS: BACTERIA,URINE None Seen /HPF (None Seen); RBC,URINE None Seen /HPF (0-2)
[2023-10-29 10:38] LABS: SQUAMOUS EPITHELIAL CELL,UR Few /LPF (None Seen); YEAST,URINE Few /HPF (None Seen)
[2023-10-29 18:49] VITALS: BP 123/72; PULSE 67; RESP 16; TEMP 97.1; O2SAT 96
[2023-10-29] MEDS: ACETAMINOPHEN 325 MG TABLET PO PRN (18:49)
[2023-10-29 19:49] VITALS: RESP 17; O2SAT 97
[2023-10-29] MEDS: DIVALPROEX SODIUM 500 MG ER TABLET PO SCH (20:31)
[2023-10-29] MEDS: OLANZapine 10 MG TABLET PO SCH (20:32)
[2023-10-30 00:26] VITALS: BP 90/55; PULSE 69; RESP 17; TEMP 96.9
[2023-10-30 08:31] VITALS: BP 120/58; PULSE 58; RESP 18; TEMP 97.5
[2023-10-30 08:45] LABS: HEMOGLOBIN A1C 5.4 % (3.8-5.6)
[2023-10-30 09:00] LABS: CHOL/HDL RATIO 4.4 (3.9-5.7); THYROID STIMULATING HORMONE 2.2 uIU/mL (0.36-3.74)
[2023-10-30] MEDS: ARIPiprazole ER SUSPENSION 400 MG PRE-FILLED DUAL CHAMBER SYRINGE IM SCH (10:01)
[2023-10-30 11:11] VITALS: RESP 18
[2023-10-30 12:11] VITALS: RESP 18
[2023-10-30] MEDS: NICOTINE POLACRILEX 2 MG LOZENGE PO PRN (14:52)
[2023-10-30 18:50] VITALS: BP 125/80; PULSE 78; RESP 18; TEMP 97.5; O2SAT 98
[2023-10-30 20:35] VITALS: BP 132/82; PULSE 75; RESP 18; TEMP 97.1; O2SAT 100
[2023-10-30] MEDS: LORazepam 2 MG/ML VIAL IM ONE (20:41)
[2023-10-30] MEDS: HALOPERIDOL LACTATE 5 MG/ML VIAL IM ONE (20:43)
[2023-10-30] MEDS: DiphenhydrAMINE HCL 50 MG/ML VIAL IM ONE (20:43)
[2023-10-31 08:29] VITALS: BP 139/79; PULSE 63; RESP 18; TEMP 97.9; O2SAT 97
[2023-10-31 10:29] VITALS: RESP 18; O2SAT 97
[2023-10-31 11:29] VITALS: RESP 17; O2SAT 97
[2023-10-31 13:45] VITALS: BP 130/64; RESP 17; O2SAT 97
[2023-10-31 21:05] VITALS: BP 113/75; PULSE 59; RESP 18; TEMP 97.5; O2SAT 97
[2023-11-01 09:11] VITALS: BP 117/66; PULSE 71; RESP 18; TEMP 97.6; O2SAT 96
[2023-11-01] MEDS: HydrOXYzine PAMOATE 50 MG CAPSULE PO SCH (10:19)
[2023-11-01 12:46] VITALS: RESP 18; O2SAT 96
[2023-11-01 13:46] VITALS: RESP 17; O2SAT 96
[2023-11-01 20:03] VITALS: RESP 19
[2023-11-01] MEDS: ONDANSETRON HCL 4 MG/2 ML VIAL IM PRN (20:03)
[2023-11-01 20:48] VITALS: BP 119/78; PULSE 68; RESP 16; TEMP 97.8; O2SAT 96
[2023-11-01 21:03] VITALS: RESP 15
[2023-11-02 08:32] VITALS: BP 105/61; PULSE 61; RESP 18; TEMP 98; O2SAT 100
[2023-11-02 09:28] VITALS: RESP 18
[2023-11-02 10:28] VITALS: RESP 18
[2023-11-02] MEDS: CEPHALEXIN MONOHYDRATE 500 MG CAPSULE PO SCH (12:49)
[2023-11-02 18:37] VITALS: RESP 17
[2023-11-02 19:37] VITALS: RESP 16
[2023-11-02 20:09] VITALS: BP 127/72; PULSE 60; RESP 18; TEMP 97; O2SAT 100
[2023-11-03 08:56] VITALS: BP 112/82; PULSE 53; RESP 17; TEMP 98.2; O2SAT 96
[2023-11-03] MEDS: MULTIVITAMINS, THERAPEUTIC TABLET PO SCH (09:10)
[2023-11-03 20:00] VITALS: BP 131/71; PULSE 60; RESP 16; TEMP 97.7; O2SAT 98
[2023-11-04 09:04] VITALS: BP 116/76; PULSE 60; RESP 18; TEMP 86.9; O2SAT 98
[2023-11-04 18:11] VITALS: RESP 18; O2SAT 98
[2023-11-04 19:11] VITALS: RESP 17; O2SAT 98
[2023-11-04 20:26] VITALS: BP 135/85; PULSE 82; RESP 18; TEMP 96.9; O2SAT 96
[2023-11-04] MEDS: QUEtiapine FUMARATE 25 MG TABLET PO ONE (21:49)
[2023-11-05 08:31] VITALS: BP 121/63; PULSE 53; RESP 18; TEMP 97.9; O2SAT 99
[2023-11-05 08:56] VITALS: RESP 18
[2023-11-05] MEDS ORDERED: HYDR50CA7 PO (19:37)
[2023-11-08] MEDS ORDERED: CEPHALEXIN MONOHYDRATE 500 MG CAPSULE PO SCH (17:00)
== END 2023-11-05 20:05 | disposition home or self-care (01) | DRG 750 ==
LOC: B2S 21:39
PROVIDERS: ADMIT Psychiatry & Neurology Psychiatry; ATTEND Psychiatry & Neurology Child & Adolescent Psychiatry
PROC: GZ58ZZZ Individual Psychotherapy, Cognitive-Behavioral (ICD-10-PCS; principal; 2023-10-29)
DX: F25.1 Schizoaffective disorder, depressive type (principal); G40.909 Epilepsy, unspecified, not intractable, without status epilepticus; R45.851 Suicidal ideations; F31.9 Bipolar disorder, unspecified; F41.9 Anxiety disorder, unspecified; E66.9 Obesity, unspecified; G47.00 Insomnia, unspecified; K31.84 Gastroparesis; Z91.010 Allergy to peanuts; Z88.5 Allergy status to narcotic agent; Z91.018 Allergy to other foods; Z91.041 Radiographic dye allergy status; Z68.36 Body mass index [BMI] 36.0-36.9, adult
CPT/HCPCS: 71046; 80061; 80307; 81001; 83036; 84439; 84443; 84703; 87081; 87086; 87186; J0401; J1200; J1630; J2060; J2405; Q0162; Q9967; 36415-L1; 36415-TC

== ENCOUNTER 2023-10-28 05:04 | Emergency (ER) | payer MEDICAID, OTHER ==
[~2023-10-28] VITALS: Ht 162.6 cm; Wt 84.1 kg
[2023-10-28 06:21] LABS: BASOPHILS % (AUTO) 0.5 % (0.0-2.0); EOSINOPHILS % (AUTO) 0.5 % (1.0-6.0); HEMATOCRIT 41.8 % (36-46); HEMOGLOBIN 13.6 g/dL (12.0-16.0); LYMPHOCYTES # (AUTO) 2.2 K/uL (1.0-4.8); LYMPHOCYTES % (AUTO) 26.9 % (22.0-44.0); MEAN CORPUSCULAR HEMOGLOBIN 30.1 pg (26.0-34.0); MEAN CORPUSCULAR HGB CONC 32.6 G/dL (31.0-37.0); MEAN CORPUSCULAR VOLUME 92 fL (80-100); MONOCYTES # (AUTO) 0.6 K/uL (0.1-1.0); MONOCYTES % (AUTO) 7.2 % (2.0-9.0); NEUTROPHILS # (AUTO) 5.3 K/uL (1.8-7.7); NEUTROPHILS % (AUTO) 64.9 % (40.0-70.0); PLATELET COUNT (AUTO) 203 K/uL (150-450); RED BLOOD CELL COUNT(AUTO) 4.53 MIL/uL (4.00-5.20); WHITE BLOOD COUNT (AUTO) 8.1 K/uL (4.5-11.0)
[2023-10-28 06:34] LABS: ALCOHOL, BLOOD (SERUM) < 3 mg/dL (0-10)
[2023-10-28 06:58] LABS: ANION GAP 9 mmol/L (8-16); CALCIUM, TOTAL 8.9 mg/dL (8.8-10.5); CARBON DIOXIDE 29 mmol/L (22-29); CHLORIDE 102 mmol/L (98-107); CREATININE 0.75 mg/dL (0.60-1.30); GLOMERULAR FILTR. RATE CALC > 60 mL/min (>60); GLUCOSE,RANDOM 82 mg/dL (70-110); SODIUM SERUM 140 mmol/L (136-145); UREA NITROGEN, BLOOD 10 mg/dL (7-18)
[2023-10-28 09:05] LABS: COVID AG,FIA SOURCE NASAL SWAB
[2023-10-28 09:33] LABS: SARS-COV2 (COVID) ANTIGEN,FIA Negative (Negative)
[2023-10-28] MEDS: HALOPERIDOL LACTATE 5 MG/ML VIAL IM ONE (13:17)
[2023-10-28] MEDS: HALOPERIDOL 5 MG TABLET PO ONE (13:20)
[2023-10-28] MEDS: LORazepam 2 MG TABLET PO ONE (13:20)
[2023-10-28 18:14] VITALS: TEMP 97.7
[2023-10-28 22:20] VITALS: BP 109/61; PULSE 80; RESP 17
== END 2023-10-28 22:53 | disposition admitted as inpatient to this hospital (09) ==
LOC: EMS 05:05
DX: F32.9 Major depressive disorder, single episode, unspecified (principal); Z98.890 Other specified postprocedural states; Z91.010 Allergy to peanuts; Z88.6 Allergy status to analgesic agent; Z88.8 Allergy status to other drugs, medicaments and biological substances; Z20.822 Contact with and (suspected) exposure to COVID-19
CPT/HCPCS: 99285; 87426; 80048; 80164; 84703; 85025; 36415; G0480

== ENCOUNTER 2023-11-02 00:35 | Emergency (ER) | payer MEDICAID ==
[~2023-11-02] VITALS: Ht 162.6 cm; Wt 96.4 kg
[2023-11-02 00:36] VITALS: BP 152/74; PULSE 65; RESP 16; TEMP 98.7
[2023-11-02] MEDS: SODIUM CHLORIDE 0.9% 1,000 ML IV ONE (01:31)
[2023-11-02] MEDS: METOCLOPRAMIDE HCL 5 MG/ML 2 ML VIAL IVP ONE (01:32)
[2023-11-02 01:59] LABS: BASOPHILS % (AUTO) 0.2 % (0.0-2.0); EOSINOPHILS % (AUTO) 0.3 % (1.0-6.0); HEMATOCRIT 38.2 % (36-46); HEMOGLOBIN 12.5 g/dL (12.0-16.0); LYMPHOCYTES # (AUTO) 2.3 K/uL (1.0-4.8); LYMPHOCYTES % (AUTO) 26.8 % (22.0-44.0); MEAN CORPUSCULAR HEMOGLOBIN 29.9 pg (26.0-34.0); MEAN CORPUSCULAR HGB CONC 32.8 G/dL (31.0-37.0); MEAN CORPUSCULAR VOLUME 91 fL (80-100); MONOCYTES # (AUTO) 0.9 K/uL (0.1-1.0); MONOCYTES % (AUTO) 10.3 % (2.0-9.0); NEUTROPHILS # (AUTO) 5.4 K/uL (1.8-7.7); NEUTROPHILS % (AUTO) 62.4 % (40.0-70.0); PLATELET COUNT (AUTO) 197 K/uL (150-450); RED BLOOD CELL COUNT(AUTO) 4.19 MIL/uL (4.00-5.20); RED CELL DISTRIBUTION WIDTH 13.5 % (11.5-14.5); WHITE BLOOD COUNT (AUTO) 8.7 K/uL (4.5-11.0)
[2023-11-02 02:14] LABS: ANION GAP 7 mmol/L (8-16); CALCIUM, TOTAL 9.4 mg/dL (8.8-10.5); CARBON DIOXIDE 31 mmol/L (22-29); CHLORIDE 102 mmol/L (98-107); CREATININE 0.81 mg/dL (0.60-1.30); GLOMERULAR FILTR. RATE CALC > 60 mL/min (>60); GLUCOSE,RANDOM 89 mg/dL (70-110); POTASSIUM 3.7 mmol/L (3.5-5.1); SODIUM SERUM 140 mmol/L (136-145); UREA NITROGEN, BLOOD 18 mg/dL (7-18)
[2023-11-02 02:18] LABS: APPEARANCE,URINE CLEAR (CLEAR); BILIRUBIN,URINE NEGATIVE (NEGATIVE); COLOR,URINE YELLOW (YELLOW); GLUCOSE, URINE (UA) NEGATIVE (NEGATIVE); KETONES,URINE NEGATIVE (NEGATIVE); LEUKOCYTE ESTERASE ,URINE MODERATE (NEGATIVE); NITRATE,URINE NEGATIVE (NEGATIVE); OCCULT BLOOD,URINE NEGATIVE (NEGATIVE); PH,URINE 7.5 (5.0-8.0); PROTEIN,URINE NEGATIVE (NEGATIVE); SPECIFIC GRAVITIY, URINE 1.022 (1.003-1.030); UROBILINOGEN,URINE <=1.0 mg/dL (<=1.0)
[2023-11-02 02:24] LABS: ALANINE AMINOTRANSFERASE 35 U/L (12-78); ALBUMIN 3.4 g/dL (3.4-5.0); ALKALINE PHOSPHATASE 72 U/L (46-116); ASPARTATE AMINOTRANSFERASE 21 U/L (15-37); BILIRUBIN,TOTAL 0.3 mg/dL (0.1-1.0); HCG,QUANTITATIVE < 1 mIU/mL (0-6); LIPASE 42 U/L (16-77); TOTAL PROTEIN, SERUM 7.8 g/dL (6.4-8.2)
[2023-11-02 02:35] LABS: RBC,URINE None Seen /HPF (0-2)
[2023-11-02 02:36] LABS: BACTERIA,URINE None Seen /HPF (None Seen); SQUAMOUS EPITHELIAL CELL,UR Few /LPF (None Seen)
[2023-11-02] MEDS: KETOROLAC TROMETHAMINE 30 MG/ML VIAL IVP ONE (02:38)
[2023-11-02] MEDS: CEPHALEXIN MONOHYDRATE 500 MG CAPSULE PO ONE (03:07)
== END 2023-11-02 04:29 | disposition home or self-care (01) ==
LOC: EMS 00:36
DX: K31.84 Gastroparesis (principal); N39.0 Urinary tract infection, site not specified; R11.2 Nausea with vomiting, unspecified; F20.9 Schizophrenia, unspecified; F31.9 Bipolar disorder, unspecified; Z98.890 Other specified postprocedural states
CPT/HCPCS: 99285; 74176; 96374; 96361; 96375; 80053; 81001; 83690; 84702; 85025; 36415; J1885; J2765; J7030

== ENCOUNTER 2024-04-18 20:13 | Emergency (ER) | payer MEDICAID, OTHER ==
[~2024-04-18] VITALS: Ht 162.6 cm; Wt 89.0 kg
[~2024-04-18 20:13] MED LIST changes: -DIVA-112 PO; -GABA-1181 PO; +HALO100V36 IM; +HYDR50CA7 PO; -OLAN10TA74 PO; +QUET100T PO
[2024-04-18 22:01] VITALS: TEMP 97.9
[2024-04-18 22:12] LABS: COVID AG,FIA SOURCE NASAL SWAB
[2024-04-18 22:32] LABS: BASOPHILS % (AUTO) 0.6 % (0.0-2.0); EOSINOPHILS % (AUTO) 0 % (1.0-6.0); HEMOGLOBIN 13.3 g/dL (12.0-16.0); LYMPHOCYTES # (AUTO) 1.1 K/uL (1.0-4.8); LYMPHOCYTES % (AUTO) 16.1 % (22.0-44.0); MEAN CORPUSCULAR HEMOGLOBIN 28.1 pg (26.0-34.0); MEAN CORPUSCULAR HGB CONC 32.3 G/dL (31.0-37.0); MEAN CORPUSCULAR VOLUME 87 fL (80-100); MONOCYTES # (AUTO) 0.4 K/uL (0.1-1.0); MONOCYTES % (AUTO) 5.7 % (2.0-9.0); NEUTROPHILS # (AUTO) 5.3 K/uL (1.8-7.7); NEUTROPHILS % (AUTO) 77.6 % (40.0-70.0); PLATELET COUNT (AUTO) 251 K/uL (150-450); RED BLOOD CELL COUNT(AUTO) 4.71 MIL/uL (4.00-5.20); RED CELL DISTRIBUTION WIDTH 13.9 % (11.5-14.5); WHITE BLOOD COUNT (AUTO) 6.8 K/uL (4.5-11.0)
[2024-04-18 22:36] LABS: INFLUENZA TYPE A NEGATIVE FOR TYPE A (NEGATIVE); INFLUENZA TYPE B NEGATIVE FOR TYPE B (NEGATIVE); SARS-COV2 (COVID) ANTIGEN,FIA Negative (Negative)
[2024-04-18 22:40] LABS: ANION GAP 9 mmol/L (8-16); CALCIUM, TOTAL 9.4 mg/dL (8.8-10.5); CARBON DIOXIDE 26 mmol/L (22-29); CHLORIDE 104 mmol/L (98-107); GLOMERULAR FILTR. RATE CALC > 60 mL/min (>60); GLUCOSE,RANDOM 117 mg/dL (70-110); POTASSIUM 3.8 mmol/L (3.5-5.1); SODIUM SERUM 139 mmol/L (136-145); UREA NITROGEN, BLOOD 6 mg/dL (7-18)
[2024-04-18 22:47] LABS: ALANINE AMINOTRANSFERASE 47 U/L (12-78); ALBUMIN 3.5 g/dL (3.4-5.0); ALKALINE PHOSPHATASE 76 U/L (46-116); ASPARTATE AMINOTRANSFERASE 26 U/L (15-37); BILIRUBIN,TOTAL 0.2 mg/dL (0.1-1.0); LIPASE 23 U/L (16-77); TOTAL PROTEIN, SERUM 8.1 g/dL (6.4-8.2)
[2024-04-18 22:57] LABS: ALCOHOL, BLOOD (SERUM) < 3 mg/dL (0-10)
[2024-04-19] MEDS: SODIUM CHLORIDE 0.9% 1,000 ML IV ONE (00:19)
[2024-04-19] MEDS: ONDANSETRON HCL 4 MG/2 ML VIAL IVP ONE (00:19)
[2024-04-19] MEDS: HALOPERIDOL 5 MG TABLET PO ONE (01:00)
[2024-04-19] MEDS: LORazepam 2 MG/ML VIAL IVP ONE (01:32)
[2024-04-19 03:00] VITALS: BP 114/59; PULSE 75; RESP 16; O2SAT 99
== END 2024-04-19 03:16 | disposition home or self-care (01) ==
LOC: EMS 20:13
DX: R11.2 Nausea with vomiting, unspecified (principal); R44.3 Hallucinations, unspecified; F17.210 Nicotine dependence, cigarettes, uncomplicated; F41.9 Anxiety disorder, unspecified; Z87.74 Personal history of (corrected) congenital malformations of heart and circulatory system; Z88.5 Allergy status to narcotic agent; Z98.890 Other specified postprocedural states; Z20.822 Contact with and (suspected) exposure to COVID-19
CPT/HCPCS: 99284; 87426; 80048; 80076; 83690; 84703; 85025; 87804; 36415; 96374; 96361; 96375; G0480; J2060; J2405